=== PATIENT | female | born 1950 | race Caucasian/White ===

== ENCOUNTER 2018-07-29 11:15 | Inpatient (IN) | payer OTHER ==
[~2018-07-29] VITALS: Ht 160 cm; Wt 62.1 kg
[2018-08-06] MEDS ORDERED: ULTRACET PO (16:22)
[2018-08-06] MEDS ORDERED: INTESTINEX680 M1 PO (16:22)
[2018-08-06] MEDS ORDERED: HYOSCYAMINE0.125 M1 SL (16:22)
== END 2018-08-06 17:23 | disposition home or self-care (01) | DRG 331 ==
LOC: O/R 08-03 06:20 → SURH 08-03 06:20
PROVIDERS: Surgery
PROC: 0DTF4ZZ Resection of Right Large Intestine, Percutaneous Endoscopic Approach (ICD-10-PCS; principal; 2018-08-03 21:30)
DX: D12.0 Benign neoplasm of cecum (principal)

== ENCOUNTER 2018-09-30 12:59 | Outpatient (CLI) | payer OTHER ==
[~2018-09-30 12:59] MED LIST: HYOSCYAMINE0.125 M1 SL; INTESTINEX680 M1 PO; ULTRACET PO
== END 2018-09-30 13:03 | disposition home or self-care (01) ==
LOC: RAD 12:59
DX: M25.551 Pain in right hip (principal); M25.552 Pain in left hip; M54.5 Low back pain

== ENCOUNTER 2021-11-12 09:50 | Outpatient (CLI) | payer OTHER | END 2021-11-12 10:01 | disposition home or self-care (01) | LOC: RAD 09:50 | PROVIDERS: ATTEND Orthopaedic Surgery | DX: S83.201A Bucket-handle tear of unspecified meniscus, current injury, left knee, initial encounter (principal); M25.562 Pain in left knee; M25.561 Pain in right knee; M25.551 Pain in right hip; M25.552 Pain in left hip | CPT/HCPCS: 73721 ==